=== PATIENT | male | born 1980 | race African-American/Black ===

== ENCOUNTER 2017-05-16 13:50 | Emergency (ER) | payer OTHER ==
[2017-05-16] MEDS ORDERED: Diazepam 5 MG TAB ONE (14:25)
[2017-05-16] MEDS ORDERED: Ketorolac Tromethamine 60 MG/2 ML VIAL ONE (14:25)
--- NOTE | 2017-05-16 15:36 | RAD ---
RADIOGRAPH LUMBAR SPINE 3 VIEWS: 05/16/17 HISTORY: 36-year-old male with persistent posttraumatic low back pain after injury one week ago. COMPARISON: None. FINDINGS: There are five lumbar type vertebrae. There is mild anterior wedging of the L1, L2, and especially L3 , vertebral bodies. These are of indeterminate age, but are favored to be chronic. At L5-S1, There is mild to moderate disc space narrowing and small end plate marginal osteophytes. The rest of the disc spaces are maintained. Alignment is normal. There is no scoliosis. IMPRESSION: Mild to moderate degenerative disc changes at L5-S1. JN [] POS: REGI
== END 2017-05-16 15:03 | disposition home or self-care (01) ==
LOC: ERS 13:50
DX: M51.36 Other intervertebral disc degeneration, lumbar region (principal)
CPT/HCPCS: 72100; 96372; J1885

== ENCOUNTER 2018-07-19 03:31 | Emergency (ER) | payer OTHER, SELFPAY ==
[2018-07-19] MEDS ORDERED: Ketorolac Tromethamine 30 MG/ML VIAL ONE (03:54)
[2018-07-19 04:01] LABS: #Basophils 0.1 thou/uL (0.0-0.2); #Eosinphils 0.3 thou/uL (0.0-0.7); #Lymphocytes 2.8 thou/uL (1.20-3.40); #Monocytes 0.6 thou/uL (0.11-0.59); #Neutrophils 3.3 thou/uL (1.40-6.50); %Basophils 1.1 % (0.0-1.0); %Lymphocytes 39.7 % (21.0-51.0); %Monocytes 8.8 % (0.0-10.0); %Neutrophils 46.4 % (42.0-75.0); Hemoglobin 16.2 g/dL (14.0-18.0); Mean Corpuscular HGB CONC 33.8 g/dL (32.0-36.0); Mean Corpuscular Hemoglobin 29.4 pg (27.0-31.0); Mean Corpuscular Volume 86.9 fL (78.0-98.0); Mean Platelet Volume 7.9 fL (7.4-10.4); Platelet Count 202 thou/uL (130-400); RBC Distribution Width 12.5 % (11.5-14.5); White Blood Cell (WBC) Count 7.2 thou/uL (4.8-10.8)
[2018-07-19 04:21] LABS: ALT (SGPT) 74 U/L (8-55); AST (SGOT) 44 U/L (5-34); Albumin 4.5 g/dL (3.5-5.0); Alkaline Phosphatase 58 U/L (40-150); Anion Gap 14 mmol/L (10-20); BUN (Urea Nitrogen) 15 mg/dL (8.9-20.6); Bilirubin, Total 0.3 mg/dL (0.2-1.2); CK (CPK) 883 U/L (30-200); Calc. Creatinine Clearance 0 mL/min (70-130); Carbon Dioxide 22 mmol/L (22-29); Chloride 105 mmol/L (98-107); Estimated GFR-MDRD 68; Globulin 3.8 g/dL (2.4-3.5); Glucose 106 mg/dL (70-105); Potassium 3.8 mmol/L (3.5-5.1); Protein, Total 8.3 g/dL (6.0-8.3); Sodium 137 mmol/L (136-145)
--- NOTE | 2018-07-19 08:45 | RAD ---
CHEST 1 VIEW: Date: 07/19/18 INDICATION: History of left shoulder pain and chest pain. COMPARISON: Prior exam dated 04/06/10. IMPRESSION: No consolidation, pleural effusion, or pneumothorax evident. Heart size within normal limits. No acut e osseous abnormality is evident. POS: BH
== END 2018-07-19 04:53 | disposition home or self-care (01) ==
LOC: ERS 03:31
DX: S29.011A Strain of muscle and tendon of front wall of thorax, initial encounter (principal); F17.220 Nicotine dependence, chewing tobacco, uncomplicated; X50.0XXA Overexertion from strenuous movement or load, initial encounter; Y99.0 Civilian activity done for income or pay
CPT/HCPCS: 71045; 80053; 82550; 84484; 85025; 85379; 93005; 96374; J1885

== ENCOUNTER 2019-04-02 13:57 | Emergency (ER) | payer BC, SELFPAY ==
[2019-04-02] MEDS ORDERED: HYDROcodone/Acetaminophen 10/325 mg Tablet ONE (14:13)
== END 2019-04-02 15:15 | disposition home or self-care (01) ==
LOC: ERS 13:57
DX: J06.9 Acute upper respiratory infection, unspecified (principal); F17.220 Nicotine dependence, chewing tobacco, uncomplicated
CPT/HCPCS: 87804; 99283

== ENCOUNTER 2019-08-21 22:56 | Emergency (ER) | payer BC ==
--- NOTE | 2019-08-21 23:43 | RAD ---
EXAM: CHEST TWO VIEWS 08/21/2019 11:40 PM HISTORY: Flulike symptoms COMPARISON: Single view the chest dated July 19, 2018 FINDINGS: Lungs: No acute airspace consolidation. Heart: Normal in size and contour. Pulmonary Vessels: Normal. Costophrenic Angles: Clear. Pneumothorax: None. Osseous Structures: Intact. Additional Findings: None. IMPRESSION: No significant acute intrathoracic disease.
== END 2019-08-22 00:22 | disposition home or self-care (01) ==
LOC: ERS 22:56
DX: J06.9 Acute upper respiratory infection, unspecified (principal); F17.220 Nicotine dependence, chewing tobacco, uncomplicated
CPT/HCPCS: 71046; 87804

== ENCOUNTER 2020-04-07 16:30 | Emergency (ER) | payer BC | END 2020-04-07 16:50 | disposition left against medical advice (07) | LOC: ERS 16:30 | DX: Z53.21 Procedure and treatment not carried out due to patient leaving prior to being seen by health care provider (principal) | CPT/HCPCS: 93005 ==